=== PATIENT | female | born 1985 | race African-American/Black ===

== ENCOUNTER 2021-04-28 10:53 | Emergency (ER) | payer OTHER, SELFPAY ==
--- NOTE | 2021-04-28 | ECG_ITS ---
Test Reason : CHEST PAIN Blood Pressure : / mmHG Vent. Rate : 075 BPM Atrial Rate : 075 BPM P-R Int : 144 ms QRS Dur : 064 ms QT Int : 340 ms P-R-T Axes : 049 002 001 degrees QTc Int : 379 ms Normal sinus rhythm Minimal voltage criteria for LVH, may be normal variant ( R in aVL ) Borderline ECG No previous ECGs available Referred By: Generic ED Physician Electronically Signed By:RUTH BEY MD
--- NOTE | ~2021-04-28 | XR_ITS ---
EXAMINATION: XR CHEST CLINICAL INFORMATION: Chest pain COMPARISON: None TECHNIQUE: 2 views of the chest were obtained. FINDINGS: The cardiac and mediastinal contours are normal. The lungs are clear. There is no pleural effusion or pneumothorax. There is curvature of the lower thoracic and upper lumbar spine to the right. Bony structures are otherwise unremarkable. XR/XR chest 2V IMPRESSION: Unremarkable examination.
[2021-04-28 11:15] VITALS: BP 130/76; PULSE 76; RESP 18; TEMP 36.6; O2SAT 98; BMI 27.4
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
[2021-04-28 12:34] VITALS: BP 105/63; PULSE 70; RESP 18; TEMP 36.9; O2SAT 97
[2021-04-28 12:44] LABS: MANUAL DIFF FLAG NO
[2021-04-28 12:47] LABS: Basophils Percent Auto 0.3 % (0-2); Eosinophils Absolute Auto 0.1 X10*3/uL (0.0-0.4); Hematocrit 38.4 % (37.0-47.0); Hemoglobin 12.6 g/dl (12.0-16.0); Imm Gran Abs Auto 0.02 X10*3/uL (0.00-0.03); Imm Gran Pct Auto 0.3 % (0.0-0.4); Lymphocytes Absolute Auto 2.4 X10*3/uL (1.2-4.9); Lymphocytes Percent Auto 32.2 % (20-40); Mean Corpuscular HGB Conc 32.8 g/dl (31.0-35.0); Mean Corpuscular Volume 82.2 fL (80.0-98.0); Mean Platelet Volume 12.2 fL (9.4-12.3); Monocytes Absolute Auto 0.5 X10*3/uL (0.1-1.2); Monocytes Percent Auto 7.1 % (2-11); Neutrophils Absolute Auto 4.35 x10*3/uL (2.0-8.3); Neutrophils Percent Auto 59.1 % (45-73); Platelet Count 266 X10*3/uL (160-400); Red Blood Count 4.67 X10*6/uL (4.20-5.50); Red Cell Distribution Width 13.6 % (11.0-16.0); White Blood Count 7.3 X10*3/uL (4.8-10.8)
[2021-04-28 13:06] LABS: Troponin-I High Sensitivity < 3.5 ng/L (<3.5-17.0)
[2021-04-28 13:21] LABS: Alanine Aminotransferase 9 U/L (0-31); Albumin Level 4.1 g/dL (3.5-5.0); Alkaline Phosphatase 57 U/L (39-117); Anion Gap 10 (12-20); Aspartate Amino Transferase 12 U/L (5-31); Bilirubin Direct 0.2 mg/dL (0.0-0.5); Bilirubin Total 0.2 mg/dL (0.0-1.0); Blood Urea Nitrogen 7 mg/dL (9-16); Calcium 9.3 mg/dL (8.4-10.2); Carbon Dioxide 26 mmol/L (22-29); Chloride 107 mmol/L (96-108); Creatinine Clr Calc Pharmacy 88.2; Estimated Glomerular Filt Rate > 60; Glucose Random 91 mg/dL (60-115); Lipase 14 U/L (8-78); Magnesium 2.1 mg/dL (1.6-2.6); Potassium 4.1 mmol/L (3.3-5.1); Sodium 139 mmol/L (135-145); Total Protein 7.1 g/dL (6.5-8.0)
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
== END 2021-04-28 15:07 | disposition home or self-care (01) ==
PROVIDERS: Emergency Provider Emergency Medicine; PCP Family Medicine
DX: R07.89 Other chest pain (principal); F41.9 Anxiety disorder, unspecified; F43.11 Post-traumatic stress disorder, acute; X58.XXXA Exposure to other specified factors, initial encounter; Y93.9 Activity, unspecified; Y92.9 Unspecified place or not applicable; Y99.9 Unspecified external cause status
CPT/HCPCS: 36415; 71046; 80048; 80076; 83690; 83735; 84484; 85025; 93005; 99284; 99285

== ENCOUNTER → 2022-01-25 09:08 | Outpatient (BNVA) | payer OTHER, SELFPAY | PROVIDERS: PCP Family Medicine; Visit Provider Advanced Practice Midwife | DX: Z30.09 Encounter for other general counseling and advice on contraception (principal) | CPT/HCPCS: 99212 ==

== ENCOUNTER 2022-03-30 10:20 | Outpatient (REF) | payer OTHER, SELFPAY ==
[2022-03-30 18:36] LABS: CT PCR NOT DETECTED (Not Detect.); NG PCR NOT DETECTED (Not Detect.)
[2022-03-31 13:26] LABS: BV Int Neg Control Negative (Negative); BV Int Pos Control Positive (Positive)
[2022-04-05 20:42] LABS: HPV mRNA E6/E7 rflx Not Detected (Not Detected)
== END 2022-03-30 10:21 | disposition home or self-care (01) ==
LOC: HO.LNP 10:20
PROVIDERS: Visit Provider Advanced Practice Midwife
DX: Z01.419 Encounter for gynecological examination (general) (routine) without abnormal findings (principal); Z11.51 Encounter for screening for human papillomavirus (HPV); N89.8 Other specified noninflammatory disorders of vagina; Z20.2 Contact with and (suspected) exposure to infections with a predominantly sexual mode of transmission
CPT/HCPCS: 87480; 87491; 87510; 87591; 87624; 87660; 88142

== ENCOUNTER → 2022-08-23 08:49 | Outpatient (BNVA) | payer OTHER, SELFPAY | PROVIDERS: PCP Family Medicine; Visit Provider Advanced Practice Midwife | DX: Z30.46 Encounter for surveillance of implantable subdermal contraceptive (principal); Z30.09 Encounter for other general counseling and advice on contraception | CPT/HCPCS: 11983; 81025; 99212; J7307 ==

== ENCOUNTER 2023-05-01 14:53 | Outpatient (AMB) | payer OTHER, SELFPAY ==
[2023-05-01 15:12] VITALS: BP 106/60; PULSE 85; O2SAT 96; BMI 26.4
--- NOTE | 2023-05-01 15:12 | MHC.PC.OV ---
Vital Signs 05/01/23 15:12 Height 5 ft 2 in Weight 144 lb 4 oz BMI 26.4 BP 106/60 Blood Pressure Location Lt brachial Position Sitting Pulse 85 Pulse Source Pulse Oximeter Pulse Oximetry (%) 96 Oxygen Delivery Method Room Air Intake Visit Reasons: ACCOUNTS RECEIVABLE ADMINISTRATOR-Chronic Care F/U ( Knee Pain) Intake Note: Patient is here as a new patient, she would like to follow up on right knee pain. Anxiety Janitorial Services Supervisor Name: [id number] Information Interpreted: clinical only Allergies No Known Allergies [No Known Allergies*] Allergy (Verified 05/01/23 15:17) Tobacco use date assessed: 05/01/23 Dental Screening Dental Screen Date: 05/01/23 Did you have a dental visit in the last 12 months?: No Did you have a dental problem in the last 6 months where you did not have access to dental care?: No Was dental information given to patient?: Yes HPI ACCOUNTS RECEIVABLE ADMINISTRATOR-Chronic Care F/U ( Knee Pain) HPI Details New?patient. Janitorial Services Supervisor service used. Prior?PCP: No recent PCP Last?office?visit/CPE: Years Acute?issue(s): R Knee?pain. No injury. L index nail melanotic stripe Anxiety PMHx: Anxiety. R knee pain. SocHx: nonsmoker. No EtoH. No drugs D-Dimer & R knee Xray. L index finger melanotic stripe. PFSH Medical History (Updated 05/01/23 @ 16:08 by Oswald Corcoran MD) Anemia Surgical History (Updated 05/01/23 @ 15:22 by Chelo Leahy CMA) No pertinent past surgical history Family History (Updated 05/01/23 @ 15:26 by Chelo Leahy CMA) Brother Mental health disorder Social History Household Members: Children Housing: Apartment Alcohol intake: never Patient Tobacco Use Status: Never used Tobacco e-Cigarette/Vaping Use: Never Used service: No Current occupational status: other Sexual orientation: Straight/Heterosexual Gender identity: Female Cognitive needs: No Hearing needs: No Vision needs: No Female Reproductive History Menstrual Age of Menarche: 16 Questionnaire Thrive Questionnaire Date Thrive assessed: 05/01/23 I am a: Patient What is your living situation today?: I have a steady place to live Within the past 12 months, did the food you bought not last and you didn't have the money to get more?: Often true Within the past 12 months, did you worry whether your food would run out before you got money to buy more?: Often true Do you have trouble paying for medicines?: No Do you have trouble getting transportation to medical appointments?: Yes Do you have trouble paying your heating and electricity bill?: No Do you have trouble taking care of your child, family member or friend?: No Do you have trouble with day-to-day activities such as bathing, preparing meals, shopping, managing finances, etc.?: No Are you currently unemployed and looking for a job?: Yes Are you interested in more education?: Yes GISSELLE-7 AMB Questionnaire GISSELLE-7 Date GISSELLE - 7 assessed: 05/01/23 Feeling nervous, anxious, or on edge: 1 = Several days Not being able to stop or control worryin = Several days Worrying too much about different things: 1 = Several days Trouble relaxin = Several days Being so restless that it is hard to sit still: 1 = Several days Becoming easily annoyed or irritable: 1 = Several days Feeling afraid as if something awful might happen: 1 = Several days Total GISSELLE-7 score (0-4 normal; 5-9 mild; 10-14 moderate; 15-21 severe): 7 Source: Developed by Drs. Rohit Townsend, Amaris Benito, Jace Zavala and colleagues, with an educational den from [employer]. Review of Systems Const Denies chills, Denies fatigue, Denies fever(s), Denies headache(s) and Denies weakness ENT Denies dizziness and Denies headache(s) Card Denies chest pain, Denies lightheadedness, Denies dyspnea and Denies other (Palpitations) Resp Denies cough, Denies dyspnea, Denies wheezing and Denies other ( shortness of breath) Musc Details: Right?knee?pain?and?intermittent?swelling Denies numbness and Denies tingling Neuro Denies dizziness, Denies headache(s), Denies numbness, Denies tingling, Denies paresthesias and Denies weakness Psych Reports anxiety and Denies depression Endo Denies fatigue Aller/Immun Denies wheezing Physical exam (Primary Care) Vital Signs: Last Vital Signs Pulse 85 05/01/23 15:12 BP 106/60 05/01/23 15:12 Pulse Ox 96 05/01/23 15:12 Oxygen Delivery Method Room Air 05/01/23 15:12 BMI result Body Mass Index 26.4 Tobacco/Smoking Status: Tobacco use Status Tobacco use date assessed 05/01/23 05/01/23 15:21 Patient Tobacco Use Status Never used Tobacco 05/01/23 15:16 e-Cigarette/Vaping Use Never Used 05/01/23 15:21 Const General: no acute distress and well developed Nutritional Appearance: well nourished Orientation/consciousness: patient oriented x3 HENMT Head: Yes normocephalic and Yes atraumatic Eyes General: appearance normal, both eyes and all related structures Pupils: Equal, round and reactive pupils present EOM: EOMs intact bilaterally Resp Effort & Inspection: normal respiratory effort Auscultation: clear to auscultation bilaterally Cardio Rate: regular rate Rhythm: regular rhythm Heart sounds: S1 normal heart sound present, S2 normal heart sound present, no gallops, no murmurs and no rubs Skin Other: Melanotic?stripe?at?left?index?finger Neuro General: patient oriented x3 and gait normal Cranial nerves: Yes Equal, round and reactive pupils present Extrem Other: Right?knee: ?Mild?limp?favoring?right?knee. No?joints?space?tenderness?or?swelling?at?this?time.??No?erythema. Psych Affect: Anxious affect present Assessment and Plan Assessment & Plan (1) Pain and swelling of right knee: Code(s): M25.561 - Pain in right knee; M25.461 - Effusion, right knee Plan: Pain?and?swelling?of?the?knee. Likely?arthritis?or?tendinitis Check?x-ray Trial?meloxicam May?need?PT?and?or?referral?to?Ortho (2) Anxiety: Code(s): F41.9 - Anxiety disorder, unspecified Plan: Trial?citalopram (3) At risk for tuberculosis: Code(s): Z91.89 - Other specified personal risk factors, not elsewhere classified Plan: Patient?is?from?[place] Check?TB?T?spot (4) Neoplasm of uncertain behavior of skin: Code(s): D48.5 - Neoplasm of uncertain behavior of skin Plan: Referred?to?dermatology Plan Referred?to?nurse?navigator?due?to?language?barrier?and?patient?is?trying?to?work?on?citizenship?but?having?difficulty?with?this. Looking?for?resources?to?help Orders: Orders UA and rflx microscopic Today Z00.00 - Encounter for general adult medical examination without abnormal findings Complete Blood Count Auto Diff Today Z00.00 - Encounter for general adult medical examination without abnormal findings XR knee RT 3V Today M25.461 - Effusion, right knee, M25.561 - Pain in right knee Comprehensive [place]. Panel Fast Today Z00.00 - Encounter for general adult medical examination without abnormal findings Lipid Panel Today Z00.00 - Encounter for general adult medical examination without abnormal findings Microalbumin, Random (w Creat) Today I10 - Essential (primary) hypertension TSH reflex Free T4 Today Z00.00 - Encounter for general adult medical examination without abnormal findings D Dimer High Sensitivity Today M79.89 - Other specified soft tissue disorders T Spot TB Today Z91.89 - Other specified personal risk factors, not elsewhere classified Referrals Nurse Navigator Referral Z60.3 - Acculturation difficulty Dermatology Referral D48.5 - Neoplasm of uncertain behavior of skin Medications: New citalopram 10 mg PO DAILY 30 tabs 2RF 30 days meloxicam 15 mg PO DAILY 30 tabs 2RF 30 days Coding Level of Care Code New Pt Level 4 (40990) Diagnoses Pain and swelling of right knee M25.561; M25.461 Anxiety F41.9 At risk for tuberculosis Z91.89 Neoplasm of uncertain behavior of skin D48.5
== END 2023-05-01 16:03 | disposition home or self-care (01) ==
PROVIDERS: PCP Family Medicine; Visit Provider Family Medicine
DX: M25.561 Pain in right knee (principal); M25.461 Effusion, right knee; F41.9 Anxiety disorder, unspecified; Z91.89 Other specified personal risk factors, not elsewhere classified; D48.5 Neoplasm of uncertain behavior of skin
CPT/HCPCS: 99204

== ENCOUNTER 2023-12-13 10:03 | Emergency (ER) | payer OTHER, SELFPAY ==
--- NOTE | ~2023-12-13 | XR_ITS ---
EXAMINATION: XR CHEST CLINICAL INFORMATION: Chest pain. COMPARISON: Chest radiograph 04/28/2021. TECHNIQUE: Frontal view of the chest was obtained. FINDINGS: Increased interstitial opacities in the lower lungs. No dense consolidation. No pleural effusion or pneumothorax. Normal appearance of the cardiomediastinal silhouette. No acute osseous findings. The visualized upper abdomen is within normal limits. XR/XR chest 1V IMPRESSION: Increased interstitial opacities in the lower lungs which are nonspecific and could be associated with asthma, bronchitis, reactive airways disease or atypical infections.
--- NOTE | ~2023-12-13 | CT_ITS ---
EXAMINATION: CT CHEST WITHOUT CONTRAST CLINICAL INFORMATION: Abnormal chest radiograph. COMPARISON: Chest radiograph earlier on same day. TECHNIQUE: Multidetector volumetric CT imaging of the chest was done. Axial MIP volume rendering provided. Sagittal and coronal reformatted images were obtained. This CT examination was performed using dose optimization techniques as appropriate, variously including the following: *Automated exposure control *Adjustment of mA and/or kV according to patient size (this includes techniques or standardized protocols for targeted exams where dose is matched to indication/reason for exam; i.e. extremities or head) *Use of iterative reconstruction technique DLP: 178 mGy-cm FINDINGS: LUNGS: Evaluation is limited due to respiratory motion. Low lung volumes with mild bibasilar subsegmental atelectasis. No focal consolidation or significant groundglass disease. Central airways are patent. MEDIASTINUM: Normal heart size. No pericardial effusion. No mediastinal lymphadenopathy. Normal appearance of the thyroid gland. CORONARY ARTERY CALCIFICATION: None visualized on this study. PLEURA: No pleural effusion or pneumothorax. AXILLA: No lymphadenopathy. UPPER ABDOMEN: Unremarkable. OSSEOUS STRUCTURES: Unremarkable. CT/CT chest wo IV con IMPRESSION: 1. Low lung volumes with mild bibasilar subsegmental atelectasis. 2. No focal consolidation or significant groundglass disease.
--- NOTE | 2023-12-13 10:12 | ECG_ITS ---
Test Reason : CHEST PAIN Blood Pressure : / mmHG Vent. Rate : 079 BPM Atrial Rate : 079 BPM P-R Int : 156 ms QRS Dur : 068 ms QT Int : 340 ms P-R-T Axes : 046 002 010 degrees QTc Int : 389 ms Normal sinus rhythm Minimal voltage criteria for LVH, may be normal variant ( R in aVL ) Borderline ECG When compared with ECG of 28-APR-2021 11:17, No significant change was found Referred By: Generic ED Physician Electronically Signed By:Ladarius Carbajal
[2023-12-13 10:26] VITALS: BP 115/82; PULSE 86; RESP 18; TEMP 36.8; O2SAT 98; BMI 28.0
[2023-12-13 10:45] LABS: MANUAL DIFF FLAG NO
[2023-12-13 10:49] VITALS: BP 123/84; PULSE 73; RESP 20; TEMP 36.9; O2SAT 98
[2023-12-13 10:50] LABS: Basophils Percent Auto 0.3 % (0-2); Eosinophils Absolute Auto 0.1 X10*3/uL (0.0-0.4); Eosinophils Percent Auto 1.3 % (0-4); Hematocrit 38.6 % (37.0-47.0); Hemoglobin 13.1 g/dl (12.0-16.0); Imm Gran Abs Auto 0.01 X10*3/uL (0.00-0.03); Imm Gran Pct Auto 0.1 % (0.0-0.4); Lymphocytes Absolute Auto 2.5 X10*3/uL (1.2-4.9); Lymphocytes Percent Auto 36.1 % (20-40); Mean Corpuscular HGB Conc 33.9 g/dl (31.0-35.0); Mean Corpuscular Volume 82.5 fL (80.0-98.0); Mean Platelet Volume 11.1 fL (9.4-12.3); Monocytes Absolute Auto 0.5 X10*3/uL (0.1-1.2); Neutrophils Absolute Auto 3.9 x10*3/uL (2.0-8.3); Neutrophils Percent Auto 55.2 % (45-73); Platelet Count 244 X10*3/uL (160-400); Red Blood Count 4.68 X10*6/uL (4.20-5.50); Red Cell Distribution Width 13.7 % (11.0-16.0)
--- NOTE | 2023-12-13 10:50 | PC.NURSE ---
financial planning advisor services utilized via [employer] supervisor tellers. a&ox4. vss and up to date. nsr on the construction director. pt presents to the ED w/ sternal c/p that radiates to back of neck as well as dizziness for the past 5 days. pt verbalizes increased stress at home. states her children were taken away 8-9 years ago and her son recently went to halfway. pt verbalizes thinking about these situations extra recently which induced these sx. pt somewhat but in no acute distress. no sob/wob noted. respirations even/unlabored. labs/ekg performed in triage. plan of care ongoing. call snyder placed within reach.
[2023-12-13 11:01] LABS: Alanine Aminotransferase 11 U/L (0-31); Albumin Level 4.1 g/dL (3.5-5.0); Alkaline Phosphatase 65 U/L (39-117); Anion Gap 10 (12-20); Aspartate Amino Transferase 14 U/L (5-31); Bilirubin Total 0.4 mg/dL (0.0-1.0); Blood Urea Nitrogen 6 mg/dL (9-16); Calcium 9.3 mg/dL (8.4-10.2); Carbon Dioxide 26 mmol/L (22-29); Chloride 109 mmol/L (96-108); Creatinine Clr Calc Pharmacy 80.8; Estimated Glomerular Filt Rate > 60; Glucose Random 115 mg/dL (60-115); Potassium 3.8 mmol/L (3.3-5.1); Sodium 141 mmol/L (135-145); Total Protein 7.2 g/dL (6.5-8.0)
--- NOTE | 2023-12-13 11:07 | PC.NURSE ---
xray completed at this time.
--- NOTE | 2023-12-13 11:08 | ED_ITS ---
HPI - Chest Pain General Chief Complaint: Chest Pain Stated Complaint: heart pain since monday Time Seen by Provider: 12/13/23 10:45 Source: patient, old records reviewed and casing fluid tender Mode of arrival: ambulatory Limitations: no limitations History of Present Illness ED Provider: KATRIN DOLAN narrative: 38 yo female with no sig PMH here with chest pain on and off x 1 year brought on by emotional stress she is very withdrawn and has flat affect seemed very suspicious and annoyed by female tech in room. She notes she has had chest pain on and off for a year and does not have a therapist and mentions family issues though she will not talk to me about it. Triage note mentions family issues, son in long-term. Review of chart notes DCF involvement, food insecurity, children being taken away. She does have nexplanon in place but no recent travel or procedures. MD complaint: chest pain Onset (ago): year(s) (1) Timing of current episode: episodic Prior episodes: Yes Onset: other (during emotional stress) Pain location: substernal Pain radiation: none Severity: mild Quality: tightness Relieving factors: nothing Exacerbating factors: stress Context: other (kids were taken away then son went to long-term has sig family stress) Associated symptoms: other (crying) Treatment prior to arrival: none Related Data Home Medications ?Medication ?Instructions ?Recorded ?Confirmed etonogestrel 68 mg subdermal subdermal 01/25/22 08/23/22 implant (Nexplanon) Previous Rx's ?Medication ?Instructions ?Recorded citalopram 10 mg tablet 10 mg PO DAILY 30 days #30 tabs 05/01/23 meloxicam 15 mg tablet 15 mg PO DAILY 30 days #30 tabs 05/01/23 Allergies Allergy/AdvReac Type Severity Reaction Status Date / Time No Known Allergies Allergy Verified 12/13/23 10:32 [No Known Allergies*] Review of Systems 2 Review of Systems: Constitutional : No Weight loss, No Fever, No Chills ENT/Mouth : No sore throat, No Rhinorrhea Eyes: No Eye Pain, No Swelling Cardiovascular : pos Chest Pain, no SOB, no Dyspnea on Exertion, No Orthopnea, No Edema, No Palpitations Respiratory : No Cough, No Sputum Gastrointestinal : no Nausea, No Vomiting, No Diarrhea, No abdominal Pain, No Hematochezia, No Melena Genitourinary : No Dysuria, No Urinary Frequency Musculoskeletal : No joint pain, No Myalgias, No Joint Swelling Skin : No Skin Lesions, No rash Neuro : No Weakness, No Numbness, No Dizziness, No Headache Psych : pos Anxiety/Panic, No Depression All other systems reviewed and are negative [facility] Past Medical History Attestation statement: The following information was validated with the patient. Source: old records reviewed Medical History Anemia Surgical History No pertinent past surgical history Family History Family History (Updated 05/01/23 @ 15:26 by Chelo Leahy CMA) Brother Mental health disorder Social History Social History Household Members: Children Housing: Apartment Alcohol intake: never Patient Tobacco Use Status: Never used Tobacco Smoked in Last 30 Days: No e-Cigarette/Vaping Use: Never Used Use of substances other than those prescribed or required for medical reasons: No Advance Directives: No Patient : No service: No Current occupational status: other Sexual orientation: Straight/Heterosexual Gender identity: Female Cognitive needs: No Hearing needs: No Vision needs: No Physical Exam 2 Vital Signs: Vital Signs: Last Vital Signs Temp 98.7 F 12/13/23 14:00 Pulse 76 12/13/23 15:41 Resp 14 12/13/23 14:00 BP 112/75 12/13/23 15:41 Pulse Ox 99 12/13/23 14:00 O2 Del Method Room Air 12/13/23 14:00 BMI result Body Mass Index 28.0 Appearance: Alert. Oriented X3. No acute distress. very withdrawn, looking around the room, flat affect Eyes: Pupils equal, round and reactive to light. ENT: Pharynx normal. Neck: Normal inspection. Neck supple. CVS: Normal heart rate and rhythm. Pulses normal. Respiratory: No respiratory distress. Breath sounds normal. Abdomen: Soft and nontender. Skin: Skin warm and dry. Normal skin color. Normal skin turgor. Extremities: No lower extremity edema. No calf ttp Neuro: Oriented X 3. No motor deficit. No sensory deficit. Course Course Course Narrative: CXR would be atypical for TB I see no prior testing but will order t spot denies infectious symptoms Medical Decision Making Medical Decision Making MDM Narrative: 38 yo female with no sig PMH here with c/o atypical chest pain in setting of family stress and she is very not forthcoming and it has been present x 1 year. This is very atypical for ACS, VTE despite nexplanon use. She will need basic labs, CXR, EKG. She is not toxic appearing. I am going to also consult CARE team given the review of her chart and what she told chief merchandising officer she has told me she does not have a therapist and even with the casing fluid tender she is not forthcoming Differential Diagnosis Differential Diagnoses: The differential diagnosis associated with the presentation includes atypical chest pain, emotional stress is on nexplanon but has no signs of DVT pain brought on by family stress no signs of DVT it is not pleuritic and she has no hypoxia doubt VTE Admission/Observation Consideration of admission/observation: Escalation of care including admission/observation considered nothing on CT scan worrisome for TB patient is asking to leave at this time Consult Healthcare Provider Management of the patient was discussed with: Pulmonary Function Technologist signed out to Mel pending CARE team input Lab Data [facility] Lab Attestation statement: I reviewed the patient's lab results. 12/13/23 10:39 12/13/23 10:39 Labs: Lab Results 12/13/23 Range/Units 10:39 WBC 7.0 (4.8-10.8) X10*3/uL RBC 4.68 (4.20-5.50) X10*6/uL Hgb 13.1 (12.0-16.0) g/dl Hct 38.6 (37.0-47.0) % MCV 82.5 (80.0-98.0) fL MCH 28.0 (27.0-33.0) pg MCHC 33.9 (31.0-35.0) g/dl RDW 13.7 (11.0-16.0) % Plt Count 244 (160-400) X10*3/uL MPV 11.1 (9.4-12.3) fL Immature Gran % (Auto) 0.1 (0.0-0.4) % Neut % (Auto) 55.2 (45-73) % Lymph % (Auto) 36.1 (20-40) % [place] % (Auto) 7.0 (2-11) % Eos % (Auto) 1.3 (0-4) % Baso % (Auto) 0.3 (0-2) % Lymph # (Auto) 2.5 (1.2-4.9) X10*3/uL Hyde # (Auto) 0.5 (0.1-1.2) X10*3/uL Eos # (Auto) 0.1 (0.0-0.4) X10*3/uL Baso # (Auto) 0.0 (0.0-0.2) X10*3/uL Abs Immat Gran (auto) 0.01 (0.00-0.03) X10*3/uL Absolute Neuts (auto) 3.9 (2.0-8.3) x10*3/uL Absolute Nucleated RBC 0.000 (0.0-0.012) X10*3/uL Nucleated RBC % (auto) 0.0 (0.0-0.2) /100WBC Sodium 141 (135-145) mmol/L Potassium 3.8 (3.3-5.1) mmol/L Chloride 109 H (96-108) mmol/L Carbon Dioxide 26 (22-29) mmol/L Anion Gap 10 L (12-20) BUN 6 L (9-16) mg/dL Creatinine 0.81 (0.5-1.4) mg/dL Estim Creat Clear Calc 80.8 Estimated GFR > 60 Random Glucose 115 (60-115) mg/dL Calcium 9.3 (8.4-10.2) mg/dL Total Bilirubin 0.4 (0.0-1.0) mg/dL AST 14 (5-31) U/L ALT 11 (0-31) U/L Alkaline Phosphatase 65 (39-117) U/L Troponin I High Sens < 2.7 (<3.5-17.0) ng/L Total Protein 7.2 (6.5-8.0) g/dL Albumin 4.1 (3.5-5.0) g/dL Independent Interpretation I performed an independent interpretation of an: EKG, Plain X-Ray (opacities) and CT Scan (no lung opacities) Interpretation: Rate: 79 Rhythm: NSR [place]: left Normal P waves. Normal ALISON. Normal QRS complex. ST T wave : no DANGELO, inverted t wave III and V1 qTC: 389 prior studies: unchanged 2020 The study has been interpreted contemporaneously by me. . Radiology Impression Discussion of test interpretation with radiology: I have reviewed the radiologist's reading. External Record Review External record reviewed: Inpatient record and Office record Discharge Plan Discharge Clinical Impression: Atypical chest pain Adjustment disorder Qualifiers: Adjustment disorder type: with anxious mood Qualified Code(s): F43.22 - Adjustment disorder with anxiety Patient Disposition: Home, Self-Care Instructions: Chest Pain (ED), Anxiety (ED) Additional Instructions: follow up with your doctor return for any worsening symptoms or concerns labs and EKG for heart normal CT scan of lungs are normal Prescriptions: No Action citalopram 10 mg tablet 10 mg PO DAILY 30 Days Qty: 30 2RF meloxicam 15 mg tablet 15 mg PO DAILY 30 Days Qty: 30 2RF Nexplanon 68 mg implant subdermal Print Language: Other
[2023-12-13 11:09] LABS: Troponin-I High Sensitivity < 2.7 ng/L (<3.5-17.0)
[2023-12-13 12:00] VITALS: BP 97/59; PULSE 74; RESP 22; TEMP 36.9; O2SAT 100
--- NOTE | 2023-12-13 12:38 | PC.NURSE ---
per provider - pt low suspicion for TB. labs obtained/sent by tech. pt provided w/ mask for transportation. pt then transferred to negative pressure room (ED1) at this time. precautions sign in place. report given to Sarah Beth/ANASTASIIA Penn at this time.
[2023-12-13 14:00] VITALS: BP 81/59; PULSE 81; RESP 14; TEMP 37.1; O2SAT 99
[2023-12-13 15:41] VITALS: BP 112/75; PULSE 76
[2023-12-13 17:17] VITALS: BP 112/75; PULSE 76; RESP 18; TEMP 36.7; O2SAT 98
--- NOTE | 2023-12-13 19:50 | MHC.CARE ---
Spoke with Alycia at [facility] who reports that referral for [facility] follow-up was received and activated. [facility] will reach out to Pt starting tomorrow for the next 3 days. Pt will also be referred for therapy at [facility]. This information was communicated to Pt using a [employer] Manager via telephone. Pt verbalized understanding and had no further questions or concerns.
--- NOTE | 2023-12-14 08:23 | MHC.CARE ---
Patient was referred to [facility]. Referral form was emailed to [email or web address]
[2023-12-18 21:53] LABS: TS Negative Control Passed; TS Panel A 0; TS Panel B 0; TS Positive Control Passed; TSpotTB Negative (Negative)
== END 2023-12-13 17:18 | disposition home or self-care (01) ==
PROVIDERS: Emergency Medicine; Emergency Provider Emergency Medicine Emergency Medical Services
DX: R07.89 Other chest pain (principal); F43.22 Adjustment disorder with anxiety; Z79.899 Other long term (current) drug therapy
CPT/HCPCS: 36415; 71045; 71250; 80053; 84484; 85025; 86481; 93005; 99285; S9485

== ENCOUNTER → 2023-12-13 10:12 | Outpatient (BNV) | payer OTHER, SELFPAY | PROVIDERS: Emergency Provider Emergency Medicine; Visit Provider Internal Medicine Cardiovascular Disease | DX: R07.9 Chest pain, unspecified (principal); R94.31 Abnormal electrocardiogram [ECG] [EKG] | CPT/HCPCS: 93010 ==

== ENCOUNTER 2024-05-10 09:54 | Outpatient (REF) | payer MEDICAID, SELFPAY ==
[2024-05-10 10:26] LABS: MANUAL DIFF FLAG NO
[2024-05-10 10:30] LABS: Basophils Percent Auto 0.4 % (0-2); Eosinophils Absolute Auto 0.1 X10*3/uL (0.0-0.4); Eosinophils Percent Auto 1.9 % (0-4); Hematocrit 38.6 % (37.0-47.0); Imm Gran Abs Auto 0.02 X10*3/uL (0.00-0.03); Imm Gran Pct Auto 0.4 % (0.0-0.4); Lymphocytes Absolute Auto 1.9 X10*3/uL (1.2-4.9); Lymphocytes Percent Auto 36.4 % (20-40); Mean Corpuscular HGB Conc 33.7 g/dl (31.0-35.0); Mean Corpuscular Hemoglobin 27.7 pg (27.0-33.0); Mean Corpuscular Volume 82.3 fL (80.0-98.0); Mean Platelet Volume 12.4 fL (9.4-12.3); Monocytes Absolute Auto 0.4 X10*3/uL (0.1-1.2); Monocytes Percent Auto 8.1 % (2-11); Neutrophils Absolute Auto 2.8 x10*3/uL (2.0-8.3); Neutrophils Percent Auto 52.8 % (45-73); Platelet Count 237 X10*3/uL (160-400); Red Blood Count 4.69 X10*6/uL (4.20-5.50); Red Cell Distribution Width 13.6 % (11.0-16.0); White Blood Count 5.3 X10*3/uL (4.8-10.8)
[2024-05-10 10:56] LABS: Estimated Average Glucose 111 mg/dL; Hemoglobin A1C 123.5365 umol/L; Hemoglobin A1c % 5.5 % (<6.0); Total Hemoglobin (HGBA1C) 3387.7441 umol/L
[2024-05-10 11:08] LABS: Alanine Aminotransferase 13 U/L (0-31); Albumin Level 4.1 g/dL (3.5-5.0); Alkaline Phosphatase 62 U/L (39-117); Anion Gap 7 (12-20); Aspartate Amino Transferase 17 U/L (5-31); Bilirubin Total 0.6 mg/dL (0.0-1.0); Blood Urea Nitrogen 7 mg/dL (9-16); Calcium 9.3 mg/dL (8.4-10.2); Carbon Dioxide 30 mmol/L (22-29); Chloride 104 mmol/L (96-108); Cholesterol 128 mg/dL (<200); Estimated Glomerular Filt Rate > 60; Glucose Random 101 mg/dL (60-115); HDL Cholesterol 34 mg/dL (>40); LDL Cholesterol Calculated 83 mg/dL (<100); Potassium 4.3 mmol/L (3.3-5.1); Sodium 137 mmol/L (135-145); Total Protein 7.1 g/dL (6.5-8.0); Triglycerides 57 mg/dL (<150)
[2024-05-10 11:10] LABS: Thyroid Stimulating Hormone 0.84 uIU/mL (0.32-4.0)
== END 2024-05-10 09:55 | disposition home or self-care (01) ==
LOC: HO.LAB 09:54
PROVIDERS: Visit Provider Nurse Practitioner Family
DX: F43.20 Adjustment disorder, unspecified (principal)
CPT/HCPCS: 36415; 80053; 80061; 83036; 84443; 85025